=== PATIENT | male | born 1945 | race Caucasian/White ===

== ENCOUNTER 2022-06-22 12:34 | Emergency (ER) | payer OTHER ==
[~2022-06-22] VITALS: Ht 175.3 cm; Wt 81.6 kg
[2022-06-22] MEDS ORDERED: BENZONATATE200 MG PO (13:18)
[2022-06-22] MEDS ORDERED: PROAIR HFA INH8.5 GM PO (13:18)
[2022-06-22] MEDS ORDERED: PAXLOVID 300-11 EACH PO (13:22)
== END 2022-06-22 13:42 | disposition home or self-care (01) ==
LOC: ER 12:52
DX: R05.9 Cough, unspecified (principal); U07.1 COVID-19; F43.10 Post-traumatic stress disorder, unspecified
CPT/HCPCS: 99282